=== PATIENT | female | born 1990 | race Hispanic/Latino ===

== ENCOUNTER 2018-06-26 16:27 | Observation (INO) | payer SELFPAY ==
[~2018-06-26] VITALS: Ht 157.5 cm; Wt 65.8 kg
[2018-06-26 18:21] LABS: CLARITY,URINE CLOUDY (CLEAR); COLOR,URINE YELLOW (YELLOW); LEUKOCYTE ESTERASE ,URINE NEGATIVE (NEGATIVE); NITRITE,URINE NEGATIVE (NEGATIVE)
[2018-06-26 18:22] LABS: BILIRUBIN,URINE NEGATIVE (NEGATIVE); KETONES,URINE NEGATIVE (NEGATIVE); PROTEIN,URINE DIPSTICK TRACE (NEGATIVE); URINE UROBILINOGEN 0.2 mg/dL (0.2 - 1)
[2018-06-26 18:23] LABS: PREGNANCY TEST, URINE NEGATIVE (NEGATIVE)
[2018-06-26 18:24] LABS: BACTERIA,URINE FEW /HPF; EPITHELIAL CELLS,URINE MODERATE /LPF; WBC,URINE (MAN) 0-5 /HPF (0-5)
[2018-06-26] MEDS ORDERED: SODIUM CHLORIDE 0.9% 1000ML 1,000 ML IV STA (18:25)
[2018-06-26] MEDS ORDERED: ONDANSETRON HCL INJ 2MG/ML 2ML 2 MG/ML VIAL IV ONE (18:45)
[2018-06-26] MEDS ORDERED: KETOROLAC TROMETHAMINE 30 MG/ML VIAL IV ONE (18:45)
[2018-06-26 18:56] LABS: BASOPHILS % 0.3 % (0.0-1.0); EOSINOPHILS # (AUTO) 0.1 (0.0-0.4); EOSINOPHILS % 0.9 % (0.0-6.0); HEMATOCRIT 34.7 % (34.2-44.1); HEMOGLOBIN 11.5 g/dL (12.0-16.0); LYMPHOCYTES # (AUTO) 2.4 (1.0-3.2); LYMPHOCYTES % 20.5 % (18.0-39.1); MEAN CORPUSCULAR HEMOGLOBIN 28.7 pg (28-32); MEAN CORPUSCULAR HGB CONC 33.1 g/dL (31-35); MEAN CORPUSCULAR VOLUME 86.5 fL (81-99); MONOCYTES % 8.1 % (4.4-11.3); NEUTROPHILS # (AUTO) 8.2 (2.1-6.9); NEUTROPHILS % 69.9 % (38.7-80.0); PLATELET COUNT 267 x10e3/uL (140-360); RED BLOOD COUNT 4.01 x10e6/uL (3.6-5.1)
[2018-06-26 19:23] LABS: BLOOD UREA NITROGEN 17 mg/dL (7-26); BUN/CREATININE RATIO 24 (6-25); CALCIUM 8.2 mg/dL (8.4-10.2); CARBON DIOXIDE 25 mmol/L (22-29); CHLORIDE 108 mmol/L (98-107); EST GLOMERULAR FILTRATION RATE > 60 ML/MIN (60-); GLUCOSE 96 mg/dL (74-118); SODIUM 141 mmol/L (136-145)
--- NOTE | 2018-06-26 22:04 | Diagnostic Imaging Report ---
EXAM: CT Abdomen and Pelvis WITH contrast INDICATION: Right lower abdominal pain. Pain over COMPARISON: None. TECHNIQUE: Abdomen and pelvis were scanned utilizing a multidetector helical scanner from the lung base to the pubic symphysis after administration of IV contrast. Coronal and sagittal reformations were obtained. Routine protocol was performed. Scan was performed when during portal venous phase. IV CONTRAST: 100 cc Isovue-370 ORAL CONTRAST: Water RADIATION DOSE: Total DLP: 613.12 mGy*cm Estimated effective dose: (DLP x 0.015 x size factor) mSv COMPLICATIONS: None FINDINGS: LINES and TUBES: None. LOWER THORAX: Unremarkable HEPATOBILIARY: No focal hepatic lesions. No biliary ductal dilation. GALLBLADDER: No radio-opaque stones or sludge. No wall thickening. SPLEEN: No splenomegaly. PANCREAS: No focal masses or ductal dilatation. ADRENALS: No adrenal nodules KIDNEYS/URETERS: Kidneys enhance symmetrically. No hydronephrosis. No cystic or solid mass lesions. No stones. GI TRACT: No abnormal distention, wall thickening, or evidence of bowel obstruction. The appendix is mildly hyperenhancing, and mildly thickened measuring up to 9 mm in diameter, associated with mild periappendiceal fat stranding; findings consistent with early acute appendicitis. Scattered diverticulosis without acute diverticulitis. PELVIC ORGANS/BLADDER: There is a complex mass in the right adnexa measuring 8.4 x 8.2 x 7.9 cm, contains soft tissue attenuation, fat attenuation in peripheral call stations, consistent with a teratoma. Trace volume of free fluid within the colon the sac. LYMPH NODES: No lymphadenopathy. VESSELS: Mild narrowing of the celiac axis at its origin. PERITONEUM / RETROPERITONEUM: No free air or fluid. BONES: Unremarkable. SOFT TISSUES: Unremarkable. IMPRESSION: 1. Finds consistent with acute noncomplicated appendicitis without abscess formation. 2. 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 3. Findings discussed with Dr. Adam Robledo. Signed by: Dr. Mirza Barbour M.D. on 06/26/2018 10:00 PM
[2018-06-26] MEDS ORDERED: CEFTRIAXONE SOD 2 GM/NS 100 ML 100 ML IV ONE (23:00)
[2018-06-26] MEDS ORDERED: DEXTROSE 5%/0.45% SOD CHL 1,000 ML IV ONE (23:00)
--- OUTSIDE RECORDS SUMMARY | 2018-06-26 23:27 | XMS REPORT ---
Author Author [facility] Address Unknown Phone Unavailable Care Team Providers Care Golf Superintendent Name Role Phone Kenyetta SANDOVAL Unavailable Unavailable Problems This patient has no known problems. Allergies, Adverse Reactions, Alerts This patient has no known allergies or adverse reactions. Medications This patient has no known medications. Results Test Description Test Time Test Comments Text Results Atomic Results Result Comments CT ABDOMEN/PELVIS W 2018 21:46:[address] [address] Patient Name: SELENA MUNOZ MR #: [id number] : 1990 Age/Sex: 28/F Req #: [id number] Adm Physician: Ordered by: DIANE NEVAREZ PREPARED FOODS SUPERVISOR Report #: [id number] Location: ER Room/Bed: Procedure: [id number] CT/CT ABDOMEN/PELVIS W Exam Date: 06/26/18 Exam Time: 1999 REPORT STATUS: Signed EXAM: CT Abdomen and Pelvis WITH contrast INDIC ATION: Right lower abdominal pain. Pain over COMPARISON: None. TECHNIQUE: Abdomen and pelvis were scanned utilizing a multidetector helical scanner from the lung base to the pubic symphysis after administration of IV contrast. Coronal and sagittal reformations were obtained. Routine protocol was performed. Scan was performed when during portal venous phase. IV CONTRAST: 100 cc Isovue-370 ORAL CONTRAST: Water RADIATION DOSE: Total DLP: 613.12 mGy*cm Estimated effective dose: (DLP x 0.015 x size factor) mSv COMPLICATIONS: None FINDINGS: LINES and TUBES: None. LOWER THORAX: Unremarkable HEPATOBILIARY: No focal hepatic lesions. No biliary ductal dilation. GALLBLADDER: No radio-opaque stones or sludge. No wall thickening. SPLEEN: No splenomegaly. PANCREAS: No focal masses or ductal dilatation. ADRENALS: No adrenal nodules KIDNEYS/URETERS: Kidneys enhance symmetr ically. No hydronephrosis. No cystic or solid mass lesions. No stones. GI TRACT: No abnormal distention, wall thickening, or evidence of bowel obstruction. The appendix is mildly hyperenhancing, and mildly thickened measuring up to 9 mm in diameter, associated with mild periappendiceal fat stranding; findings consistent with early acute appendicitis. Scattered diverticulosis without acute diverticulitis. PELVIC ORGANS/BLADDER: There is a complex mass in the right adnexa measuring 8.4 x 8.2 x 7.9 cm, contains soft tissue attenuation, fat attenuation in peripheral call stations, consistent with a teratoma. Trace volume of free fluid within the colon the sac. LYMPH NODES: No lymphadenopathy. VESSELS: Mild narrowing of the celiac axis at its origin. PERITONEUM / RETROPERITONEUM: No free air or fluid. BONES: Unremarkable. SOFT TISSUES: Unremarkable. IMPRESSION: 1. Finds consistent with acute noncomplicated appendicitis without abscess format ion. 2. 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 3. Findings discussed with Dr. Adam Robledo. Signed by: Dr. Mirza Almaguer M.D. on 2018 10:00 PM Dictated By: BINTA ALMAGUER MD, MD 99 Transcribed By: DONNA on 06/26/182199 COPY TO: DIANE NEVAREZ NP
--- NOTE | 2018-06-26 23:53 | Pre Op History & Physical ---
CHIEF COMPLAINT: Right lower quadrant pain. HISTORY OF PRESENT ILLNESS: The patient is a pleasant 28-year-old female, healthy, admitted complaining of abdominal pain started in the right lower quadrant several hours prior to admission. Some nausea. No vomiting. No diarrhea. No similar episodes. The patient presented to emergency room and a CT scan revealed uncomplicated appendicitis. She was found to have in addition a right-sided 8 cm ovarian mass consistent with a teratoma. The patient's white count is 11. Electrolytes are normal. PAST MEDICAL HISTORY: Unremarkable. PAST SURGICAL HISTORY: No previous abdominal surgeries. SOCIAL HISTORY: The patient drinks socially. Does not smoke. FAMILY HISTORY: Noncontributory. CURRENT MEDICATIONS: None. REVIEW OF SYSTEMS: Significant for what has been stated. PHYSICAL EXAMINATION: GENERAL: Reveals a 28-year-old female, in no acute distress. HEAD, EYES, EARS, NOSE, AND THROAT: Normal. NECK: Supple. LUNGS: Clear. HEART: Regular sinus rhythm. ABDOMEN: Soft with deep tenderness in the right lower quadrant on deep palpation. Mild rebound. There are no palpable masses or hernia. PELVIC: Deferred. EXTREMITIES: Revealed no clubbing, cyanosis, or edema. RADIOLOGIC AND LABORATORY DATA: Have been discussed. ASSESSMENT: Acute appendicitis and right ovarian 8 cm teratoma. PLAN: The plan is to proceed with laparoscopic appendectomy, possible open appendectomy. HOUSEKEEPING WORKER has been consulted. Dr. Smith will be seeing the patient tomorrow and he will be performing the oophorectomy. MD MARIE Blanc/MICHELLE /[id number]
[2018-06-27] VITALS (9 sets, daily range): BP systolic 107–147; BP diastolic 61–78
[2018-06-27] MEDS: METRONIDAZOLE 500MG/NS 100ML 100 ML IV SCH ×5 (02:12→23:54)
[2018-06-27] MEDS ORDERED: DEXTROSE 5%/0.45% SOD CHL 1,000 ML IV ONE (02:15)
[2018-06-27] MEDS ORDERED: CEFTRIAXONE SOD 2 GM/NS 100 ML 100 ML IV ONE (02:15)
[2018-06-27] MEDS ORDERED: IOPAMIDOL 370 MG/ML 200 ML INFUS..BTL INJ ONE (02:39)
[2018-06-27] MEDS ORDERED: SODIUM CHLORIDE 0.9% 50ML 50 ML ONE (02:39)
[2018-06-27] MEDS ORDERED: CEFTRIAXONE SOD 1 GM VIAL ONE ×2 (03:19→17:55)
[2018-06-27] MEDS ORDERED: SODIUM CHLORIDE 0.9% 100 ML ONE (03:20)
--- NOTE | 2018-06-27 05:00 | NUR ---
patient received to room 294 via stretcher from the ER. VSS. Lower right abd pain 09/21. Dr. Sandy Rodriguez to be called re: pain. ivf continue to infuse without difficulty. mother noted at bedside. admit assessment/history obtained.
[2018-06-27] MEDS ORDERED: HYDROMORPHONE 2MG/ML 2 MG/ML ML IV STA (05:52)
--- NOTE | 2018-06-27 06:10 | NUR ---
consent obtained for laparoscopic appendectomy possible open appendectomy per orders at this time.
--- NOTE | 2018-06-27 06:20 | NUR ---
patient medicated with dilaudid 1 mg ivp for c/o right lower quad abd pain 6/10. will continue to monitor.
--- NOTE | 2018-06-27 07:30 | NUR ---
PT UP IN BED NO DISTRESS NTOED ,DENIES PAIN.
--- NOTE | 2018-06-27 08:25 | NUR ---
SPOKE WITH DR BURLESON
--- NOTE | 2018-06-27 10:00 | NUR ---
DR BURLESON HERE SPOKE WITH PATIENT
--- NOTE | 2018-06-27 10:16 | NUR ---
CM spoke to pt nurse, Sarah Patel LVN. She stated the patient is scheduled for surgery today at 12 noon. DC plan is pending outcome.
--- NOTE | 2018-06-27 11:35 | NUR ---
PT TRANSPORTED TO OR VIA BED STABLE CONDITION
[2018-06-27] MEDS ORDERED: BUPIVACAINE 0.25%/EPI 30ML SDV INJ ONE ×2 (12:38→15:00)
[2018-06-27] MEDS ORDERED: FENTANYL CITRATE/PF 100MCG/2 ML INJ ONE ×2 (13:30→15:50)
[2018-06-27] MEDS ORDERED: MIDAZOLAM HCL 2 MG/2 ML VIAL ONE (13:30)
[2018-06-27] MEDS ORDERED: HYDROGEN PEROXIDE 120 ML BTL ONE (14:42)
[2018-06-27] MEDS ORDERED: NEOSTIGMINE 1 MG/ML 10ML VIAL ONE (14:52)
[2018-06-27] MEDS ORDERED: ONDANSETRON HCL INJ 2MG/ML 2ML 2 MG/ML VIAL IV PRN (15:15)
[2018-06-27] MEDS ORDERED: PROMETHAZINE HCL (IM) 25 MG/ML VIAL IV PRN (15:15)
[2018-06-27] MEDS ORDERED: MEPERIDINE HCL INJ 25 MG/ML VIAL ONE (15:27)
[2018-06-27] MEDS ORDERED: LEVOFLOXACIN 500MG/D5W 100ML 100 ML IV SCH (16:00)
[2018-06-27] MEDS ORDERED: PANTOPRAZOLE 40 MG 10ML VIAL IV SCH (16:00)
[2018-06-27] MEDS ORDERED: MORPHINE SULFATE INJ 4 MG/ML INJ 1ML ONE (16:33)
--- NOTE | 2018-06-27 16:55 | NUR ---
PT RETURNED TO ROOM VIA BED AWAKE ,PAIN LEVEL 3.DRSG TO ABD X3 SITES COVERED WITH FOAM TAPE CD&I,IV PATENT FLUIDS INFUSING.VS 107/64,81,97% RA.SCD APPLIED.
[2018-06-27] MEDS: D5.45%NS/KCL 20MEQ 1,000 ML IV SCH (17:47)
--- NOTE | 2018-06-27 17:50 | NUR ---
UP IN BED TOLERATING CLEAR LIQUID WELL,DTV BY 2200
[2018-06-27] MEDS ORDERED: KETOROLAC TROMETHAMINE 30 MG/ML VIAL ONE (17:55)
[2018-06-27] MEDS ORDERED: ROCURONIUM BROMIDE 10 MG/ML 5ML VIAL ONE (17:55)
[2018-06-27] MEDS ORDERED: LIDOCAINE HCL 2% LOCAL INJ 5 ML SDV VIAL INJ ONE (17:55)
[2018-06-27] MEDS ORDERED: SEVOFLURANE INHAL SOLN 250 ML PEN BTL ONE (17:55)
[2018-06-27] MEDS ORDERED: PROPOFOL IV EMULSION 10 MG/ML 20 ML VIAL ONE (17:55)
[2018-06-27] MEDS ORDERED: ONDANSETRON HCL INJ 2MG/ML 2ML 2 MG/ML VIAL ONE (17:55)
[2018-06-27] MEDS ORDERED: DEXAMETHASONE SOD PHOS INJ 4 MG/ML VIAL ONE (17:55)
--- NOTE | 2018-06-27 19:00 | NUR ---
patient received awake, alert, lying quietly in bed. no c/o pain noted. dressing to abd remains c,d,i. ivf continue to infuse without difficulty. pm assessment complete. family noted at the bedside. patient instructed to call for assistance when needed.
--- NOTE | 2018-06-27 21:26 | NUR ---
patient medicated with zofran 4 mg ivp for c/o nausea.
--- NOTE | 2018-06-27 22:00 | NUR ---
patient oob to bathroom with assistance. patient voids without difficulty.
--- NOTE | 2018-06-27 22:30 | NUR ---
iv to right ac d/c'd due to leaking at site. iv #20 gauge placed to right hand x 1 stick. ivf continue to infuse without difficulty.
[2018-06-27] MEDS: HYDROMORPHONE 2MG/ML 2 MG/ML ML IV PRN (23:12)
--- NOTE | 2018-06-27 23:12 | NUR ---
patient medicated with dilaudid 1 mg ivp for c/o abd pain 10/21 at this time. ivf infusing without difficulty. family remains at the bedside.
--- NOTE | 2018-06-27 23:17 | Operative Report ---
DATE OF PROCEDURE: 06/27/2018 SURGEON: Kwadwo Rodriguez MD PREOPERATIVE DIAGNOSIS: Acute abdominal pain, acute appendicitis, and right ovarian teratoma. ANESTHESIA: General, Dr. German. ESTIMATED BLOOD LOSS: Minimal. DRAINS: None. COMPLICATIONS: None. CASH REGISTER OPERATOR: PROCEDURE PERFORMED: Laparoscopic appendectomy and laparoscopic right salpingo-oophorectomy. INDICATIONS AND FINDINGS: The patient is a 28-year-old female, who had been complaining of right lower quadrant pain for several hours prior to admission in the CT scan. She came to the emergency room, had a CT scan, revealed changes consistent with appendicitis and right ovarian teratoma. She was admitted, given intravenous antibiotics, hydrated, and then taken to the operating room the next day. MOBILE DEVICE ENGINEER consultation was obtained by Dr. Smith, who performed a right salpingo-oophorectomy and he will be describing his findings on a separate operative report. INTRAOPERATIVE FINDINGS: From General Surgery point of view was acute early appendicitis. DESCRIPTION OF PROCEDURE: With the patient lying on the operating table in the supine position, after administration of general anesthesia, she was prepped and draped for laparoscopic appendectomy. The procedure was begun by establishing the pneumoperitoneum in the umbilical site using a #11 and #12 trocar and then establishing a pneumoperitoneum after the pneumoperitoneum was created to 15 mm of pressure. We then placed two 5 mm trocars, one in the right upper quadrant, one in the right lower quadrant region. Using 5 mm trocars and then we performed the appendectomy by transecting the appendix after we made a in the mesoappendix close to the cecum and the appendix at the junction of the cecum with the Endo-ALANA stapler with a blue load. Blood supply to the appendix was transected using the same Endo-ALANA with a white load. We then copiously irrigated the abdominal cavity. there was no bleeding and no evidence of bowel injury, none was found. At this point, Dr. Smith took over the case. He performed his right salpingo-oophorectomy. The incision which I had initially made to accommodate a 11/12 trocar, he had to enlarge in order to extract this large ovarian teratoma that was about 8 cm. After he completed his procedure, which he will be dictating separately. I went ahead and then I closed the incision. We placed 4-0 Vicryl stitches to close the fascia and then closed the subcutaneous tissues using a combination of 2-0 and 3-0 Vicryl, and then we closed the umbilical port using 3-0 nylon. The two other trocar sites were closed using marco. Marcaine 0.25% with epinephrine was given as local block at the end of the case at the three port sites, the family was informed of the intraoperative findings. She tolerated the procedure well, taken to recovery room in stable condition. MD MARIE Blanc/MICHELLE /[id number]
[2018-06-28] VITALS: BP 115/56
[2018-06-28] MEDS: D5.45%NS/KCL 20MEQ 1,000 ML IV SCH (05:40)
[2018-06-28] MEDS: METRONIDAZOLE 500MG/NS 100ML 100 ML IV SCH ×2 (05:43→12:00)
[2018-06-28 06:16] LABS: BASOPHILS % 0.4 % (0.0-1.0); EOSINOPHILS % 0.2 % (0.0-6.0); HEMOGLOBIN 9.7 g/dL (12.0-16.0); LYMPHOCYTES # (AUTO) 1.5 (1.0-3.2); LYMPHOCYTES % 15.5 % (18.0-39.1); MEAN CORPUSCULAR HEMOGLOBIN 28.8 pg (28-32); MEAN CORPUSCULAR HGB CONC 33.4 g/dL (31-35); MEAN CORPUSCULAR VOLUME 86.1 fL (81-99); MONOCYTES # (AUTO) 0.7 (0.2-0.8); MONOCYTES % 7.5 % (4.4-11.3); NEUTROPHILS # (AUTO) 7.1 (2.1-6.9); NEUTROPHILS % 75.9 % (38.7-80.0); PLATELET COUNT 233 x10e3/uL (140-360); RED BLOOD COUNT 3.37 x10e6/uL (3.6-5.1); RED CELL DISTRIBUTION WIDTH 12.9 % (11.7-14.4)
[2018-06-28 06:37] LABS: ANION GAP 10.2 mmol/L (8-16); BLOOD UREA NITROGEN < 5 mg/dL (7-26); BUN/CREATININE RATIO 7 (6-25); CALCIUM 7.7 mg/dL (8.4-10.2); CARBON DIOXIDE 25 mmol/L (22-29); CHLORIDE 109 mmol/L (98-107); CREATININE, SERUM 0.69 mg/dL (0.57-1.11); EST GLOMERULAR FILTRATION RATE > 60 ML/MIN (60-); GLUCOSE 107 mg/dL (74-118); POTASSIUM 4.2 mmol/L (3.5-5.1); SODIUM 140 mmol/L (136-145)
--- NOTE | 2018-06-28 07:30 | NUR ---
PT UP IN BED NO DISTRESS NOTED,DENIES P[AIN
[2018-06-28 08:28] VITALS: BP 104/65
[2018-06-28] MEDS: HYDROMORPHONE 2MG/ML 2 MG/ML ML IV PRN (10:45)
--- NOTE | 2018-06-28 12:10 | NUR ---
DR ARNDT HERE DISCHARGED PT HOME PRESCRIPTIONS GIVEN COPY ON CHART
[2018-06-28 12:13] VITALS: BP 129/61
[2018-06-28] MEDS ORDERED: TYLENOL WITH C1 EACH PO (13:55)
--- NOTE | 2018-06-28 14:21 | NUR ---
PT DISCHARGED HOME IV DCD WITHOUT REDNESS OR SWELLING,PRESCRIPTIONS AND INSTRUCTIONS GIVEN COPY ON CHART,TRANSPORTED TO AUTO VIA W/C
--- NOTE | 2018-06-29 13:31 | History and Physical ---
HISTORY OF PRESENT ILLNESS: A 28-year-old, 0, who came in complaining of right lower quadrant pain. Her last menstrual period was 06/18/2018. Her pain is crampy in nature, mainly in the right lower quadrant with no provoking or relieving factor, started acutely on Friday morning. She is on control pills and she has a history of chlamydia. Her periods are normally regular every 28 days lasting for 5 days. No history of abnormal Pap smear. PAST MEDICAL HISTORY: Not significant. PAST SURGICAL HISTORY: Not significant. ALLERGIES: NO KNOWN DRUG ALLERGIES. MEDICATIONS: On control pills. SOCIAL HISTORY: She denies smoking, but admits to drinking alcohol about 14 drinks a week. REVIEW OF SYSTEMS: She denies any cardiovascular, respiratory, dermatological, hematological, musculoskeletal, or psychiatric problems. PHYSICAL EXAMINATION: VITAL SIGNS: Stable. CHEST: Clear to auscultation. CARDIOVASCULAR: Regular rate. ABDOMEN: Soft, but tender in the right lower quadrant. IMAGING DATA: Imaging showed large right ovarian mass and possible appendicitis. ASSESSMENT AND PLAN: A 28-year-old with right lower quadrant pain. Liasing with General Surgery, we will proceed with right appendectomy and right ovarian cystectomy/oophorectomy. The patient understands the procedure very well. All her questions were answered. Porsche Smith MD DD/MICHELLE /[id number]
--- NOTE | 2018-06-29 20:02 | Operative Report ---
DATE OF PROCEDURE: SURGEON: Porsche Smith MD PREOPERATIVE DIAGNOSIS: Right dermoid cyst. POSTOPERATIVE DIAGNOSIS: Right dermoid cyst. PROCEDURE: Laparoscopic right salpingo-oophorectomy. MARINE DESIGN ENGINEER: Dr. Kwadwo Rodriguez. COMPLICATIONS: None. ESTIMATED BLOOD LOSS: 50 mL. PROCEDURE IN DETAIL: The patient was taken to the OR. General anesthesia was induced. She was prepped and draped in a sterile fashion, placed in dorsal supine position. Laparoscopy was performed by and they performed appendectomy already. At that stage, there were 2 ports on the right side of the abdomen and the umbilical port where a 10 mm scope was passed through. Right dermoid cyst of about 8 to 9 cm was noticed. The left ovary and tube were normal. Uterus was normal. No ovarian tissue was noted. Accordingly, decision was made to carry on with right salpingo-oophorectomy. This was performed uneventfully using LigaSure where the infundibulopelvic was held. Vessels were occluded and cut. The same was repeated on the others and multiple bites were made in the cornual side of the tube and ovary and this was performed uneventfully. Specimen was released. EndoCatch tube was passed through the umbilicus and ovarian mass could not go into the EndoCatch, accordingly decision was made to aspirate. A small incision was made into the ovarian mass and suction sculpture conservator was passed through and sebaceous material was aspirated, and this mass became smaller in size and was placed into the EndoCatch and was removed through the umbilicus after enlarging the incision at the umbilicus. Procedure was smooth and no complications noted. The procedure was found to be adequate. took over at that stage to finish the procedure and close the ports as per his dictation. At the end of my procedure, lap and instrument count was correct x2. Porsche Smith MD DD/MODL /[id number]
== END 2018-06-28 14:31 | disposition home or self-care (01) ==
LOC: ER 16:27 → INTOOBSV 23:22 → ERHOLD 23:22 → MED/SURG3 06-27 04:43
PROVIDERS: ADMIT Surgery; ATTEND Surgery
DX: K35.80 Unspecified acute appendicitis (principal); D27.0 Benign neoplasm of right ovary
CPT/HCPCS: 36415 ×3; 44970; 58661; 74177; 80048 ×2; 81001; 81025; 84702; 85025 ×2; 88304; 88305; 99284; C1766; C9113; G0378 ×3; J0696 ×3; J1100; J1170 ×2; J1885 ×2; J1956; J2001; J2175; J2250; J2270; J2405 ×2; J2704; J2710; J7030; J7050; Q9967